=== PATIENT | male | born 1940 | race Caucasian/White ===

== ENCOUNTER 2016-07-21 08:16 | Outpatient (CLI) | payer MEDICARE | END 2016-07-21 08:17 | disposition home or self-care (01) | DX: E78.2 Mixed hyperlipidemia (principal); Z79.899 Other long term (current) drug therapy ==

== ENCOUNTER 2016-09-19 08:00 | Outpatient (CLI) | payer MEDICARE | END 2016-09-19 23:59 | DX: E78.2 Mixed hyperlipidemia (principal); I10 Essential (primary) hypertension; Z79.899 Other long term (current) drug therapy ==

== ENCOUNTER 2017-06-01 08:00 | Outpatient (CLI) | payer MEDICARE ==
[2017-06-01 14:18] LABS: BASOPHILS % (AUTO) 0.7 %; EOSINOPHILS # (AUTO) 0.4 10^3/uL (0.0-0.7); EOSINOPHILS % (AUTO) 6.2 %; HCT - HEMATOCRIT 41.9 % (42.0-52.0); HGB - HEMOGLOBIN 14.5 g/dL (14.0-18.0); LYMPHOCYTES # (AUTO) 1.5 10^3/uL (1.5-3.5); LYMPHOCYTES % (AUTO) 26.4 %; MEAN CORPUSCULAR HGB CONC 34.6 g/dL (32.0-36.0); MEAN CORPUSCULAR VOLUME 95.5 fL (80.0-94.0); MEAN PLATELET VOLUME 7.5 fL (7.4-11.4); MONOCYTES # (AUTO) 0.7 10^3/uL (0.0-1.0); MONOCYTES % (AUTO) 11.6 %; NEUTROPHILS # (AUTO) 3.1 10^3/uL (1.5-6.6); NEUTROPHILS % (AUTO) 55.1 %; RED BLOOD COUNT 4.39 10^6/uL (4.70-6.10); RED CELL DISTRIBUTION WIDTH 12.9 % (12.0-15.0); UNCORRECTED WHITE BLOOD COUNT 5.7 x10^3/uL; WHITE BLOOD COUNT 5.7 x10^3/uL (4.8-10.8)
[2017-06-01 14:34] LABS: ALBUMIN/GLOBULIN RATIO 1.4 (1.0-2.2); BILIRUBIN,TOTAL 0.9 mg/dL (0.2-1.0); BUN - BLOOD UREA NITROGEN 23 mg/dL (6-20); CARBON DIOXIDE - CO2 25 mmol/L (21-32); CHLORIDE 105 mmol/L (101-111); CHOL/HDL RATIO 4.4 (<5.0); CHOLESTEROL 168 mg/dL; CREATININE 0.9 mg/dL (0.6-1.2); GFR - MDRD 82 (>89); GLUCOSE 105 mg/dL (70-100); HDL CHOLESTEROL 38 mg/dL; LDL/HDL RATIO 2.8 (<3.6); SODIUM 138 mmol/L (135-145); TRIGLYCERIDES 114 mg/dL; VLDL CHOLESTEROL 23 mg/dL
[2017-06-02 13:36] LABS: HEMOGLOBIN A1C 0.55 g/dL
== END 2017-06-01 08:01 ==
LOC: LAB.R 08:00
PROVIDERS: ATTEND Internal Medicine
DX: I65.29 Occlusion and stenosis of unspecified carotid artery (principal); Z79.899 Other long term (current) drug therapy; R73.9 Hyperglycemia, unspecified; I10 Essential (primary) hypertension; E78.5 Hyperlipidemia, unspecified
CPT/HCPCS: 80053; 80061; 83036; 84443; 85025

== ENCOUNTER 2017-07-08 13:20 | Day surgery (SDC) | payer MEDICARE, OTHER ==
[2017-07-08] MEDS ORDERED: LACTATED RINGERS 1,000 ML IV ONE (13:30)
[2017-07-08] MEDS ORDERED: fentaNYL 100 MCG/2 ML VIAL IVP ONE (15:22)
[2017-07-08] MEDS ORDERED: MIDAZOLAM 2 MG/2 ML VIAL IVP ONE (15:22)
[2017-07-08 16:24] VITALS: BP 123/61
== END 2017-07-08 13:21 | disposition home or self-care (01) ==
LOC: SDS 13:20
PROVIDERS: ATTEND Internal Medicine
PROC: 0DBN8ZX Excision of Sigmoid Colon, Via Natural or Artificial Opening Endoscopic, Diagnostic (ICD-10-PCS; principal; 2017-07-08 14:30)
DX: Z12.11 Encounter for screening for malignant neoplasm of colon (principal); D12.5 Benign neoplasm of sigmoid colon; K57.30 Diverticulosis of large intestine without perforation or abscess without bleeding
CPT/HCPCS: 45380; 88305; J7120

== ENCOUNTER 2018-07-08 08:00 | Outpatient (CLI) | payer MEDICARE, OTHER ==
[2018-07-08 14:36] LABS: BASOPHILS % (AUTO) 0.7 %; EOSINOPHILS # (AUTO) 0.3 10^3/uL (0.0-0.7); EOSINOPHILS % (AUTO) 5.1 %; HGB - HEMOGLOBIN 14.4 g/dL (14.0-18.0); LYMPHOCYTES # (AUTO) 1.4 10^3/uL (1.5-3.5); LYMPHOCYTES % (AUTO) 26.2 %; MEAN CORPUSCULAR HEMOGLOBIN 32.8 pg (27.0-31.0); MEAN CORPUSCULAR HGB CONC 34.4 g/dL (32.0-36.0); MEAN CORPUSCULAR VOLUME 95.3 fL (80.0-94.0); MEAN PLATELET VOLUME 7.5 fL (7.4-11.4); MONOCYTES # (AUTO) 0.6 10^3/uL (0.0-1.0); MONOCYTES % (AUTO) 10.6 %; NEUTROPHILS # (AUTO) 3.1 10^3/uL (1.5-6.6); NEUTROPHILS % (AUTO) 57.4 %; PLT - PLATELET COUNT 266 10^3/uL (130-450); RED BLOOD COUNT 4.41 10^6/uL (4.70-6.10); RED CELL DISTRIBUTION WIDTH 13.3 % (12.0-15.0); WHITE BLOOD COUNT 5.4 x10^3/uL (4.8-10.8)
[2018-07-08 14:52] LABS: HB2 TOTAL 15.6 g/dL; HEMOGLOBIN A1C 0.5 g/dL; HEMOGLOBIN A1C % 5.1 % (4.6-6.2)
[2018-07-08 14:53] LABS: ALBUMIN 4.3 g/dL (3.2-5.5); ALBUMIN/GLOBULIN RATIO 1.5 (1.0-2.2); ALKALINE PHOSPHATASE 64 IU/L (42-121); ALT ALANINE AMINOTRANSFERASE 27 IU/L (10-60); AST ASPARTATE AMINOTRANSFERASE 28 IU/L (10-42); BILIRUBIN,TOTAL 1.1 mg/dL (0.2-1.0); BUN - BLOOD UREA NITROGEN 22 mg/dL (6-20); CARBON DIOXIDE - CO2 24 mmol/L (21-32); CHLORIDE 106 mmol/L (101-111); CHOL/HDL RATIO 4.8 (<5.0); CHOLESTEROL 164 mg/dL; CREATININE 0.9 mg/dL (0.6-1.2); GFR - MDRD 82 (>89); GLUCOSE 99 mg/dL (70-100); HDL CHOLESTEROL 34 mg/dL; LDL CHOLESTEROL,CALCULATED 103 mg/dL; SODIUM 136 mmol/L (135-145); TOTAL PROTEIN 7.1 g/dL (6.7-8.2); VLDL CHOLESTEROL 27 mg/dL
== END 2018-07-08 23:59 | disposition home or self-care (01) ==
LOC: LAB.R 08:00
PROVIDERS: ATTEND Internal Medicine
DX: R73.9 Hyperglycemia, unspecified (principal); I65.29 Occlusion and stenosis of unspecified carotid artery; I10 Essential (primary) hypertension; Z12.5 Encounter for screening for malignant neoplasm of prostate; E78.5 Hyperlipidemia, unspecified; Z79.899 Other long term (current) drug therapy
CPT/HCPCS: 80053; 80061; 83036; 84443; 85025; G0103; 83721; 84153

== ENCOUNTER 2018-08-03 08:00 | Outpatient (CLI) | payer MEDICARE ==
[2018-08-03 16:05] LABS: PSA FREE 0.386 ng/mL (0.16-2.81)
[2018-08-03 16:06] LABS: PSA TOTAL 1.661 ng/mL (0.000-2.000)
== END 2018-08-03 23:59 | disposition home or self-care (01) ==
LOC: LAB.R 08:00
PROVIDERS: ATTEND Internal Medicine
DX: R97.20 Elevated prostate specific antigen [PSA] (principal)
CPT/HCPCS: 81599; 84153; 84154

== ENCOUNTER 2018-08-10 14:50 | Outpatient (CLI) | payer MEDICARE ==
[2018-08-10 16:33] LABS: BASOPHILS # (AUTO) 0.1 10^3/uL (0.0-0.1); BASOPHILS % (AUTO) 1.2 %; EOSINOPHILS # (AUTO) 0.2 10^3/uL (0.0-0.7); EOSINOPHILS % (AUTO) 1.8 %; HGB - HEMOGLOBIN 12.9 g/dL (14.0-18.0); LYMPHOCYTES # (AUTO) 4.1 10^3/uL (1.5-3.5); LYMPHOCYTES % (AUTO) 46.1 %; MEAN CORPUSCULAR HEMOGLOBIN 32.5 pg (27.0-31.0); MEAN CORPUSCULAR HGB CONC 33.8 g/dL (32.0-36.0); MEAN PLATELET VOLUME 7.9 fL (7.4-11.4); MONOCYTES # (AUTO) 0.9 10^3/uL (0.0-1.0); MONOCYTES % (AUTO) 9.9 %; NEUTROPHILS # (AUTO) 3.7 10^3/uL (1.5-6.6); PLT - PLATELET COUNT 164 10^3/uL (130-450); RED BLOOD COUNT 3.98 10^6/uL (4.70-6.10); RED CELL DISTRIBUTION WIDTH 13.3 % (12.0-15.0); WHITE BLOOD COUNT 8.9 x10^3/uL (4.8-10.8)
[2018-08-10 16:50] LABS: ALBUMIN 3.5 g/dL (3.2-5.5); ALBUMIN/GLOBULIN RATIO 0.9 (1.0-2.2); BILIRUBIN,TOTAL 1.2 mg/dL (0.2-1.0); CALCIUM 8.3 mg/dL (8.5-10.3); CREATININE 1.4 mg/dL (0.6-1.2); CRP - C-REACTIVE PROTEIN 4.4 mg/dL (0-1.0); TOTAL PROTEIN 7.2 g/dL (6.7-8.2)
== END 2018-08-10 23:59 | disposition home or self-care (01) ==
LOC: LAB.R 14:50
PROVIDERS: ATTEND Internal Medicine
DX: R53.83 Other fatigue (principal); E78.5 Hyperlipidemia, unspecified; K75.9 Inflammatory liver disease, unspecified
CPT/HCPCS: 80053; 80074; 84484; 85025; 85651; 86140

== ENCOUNTER 2018-08-14 10:02 | Emergency (ER) | payer MEDICARE ==
[2018-08-14] MEDS ORDERED: ACETAMINOPHEN 325 MG TABLET PO STA (11:11)
[2018-08-14] MEDS ORDERED: ALBUTEROL NEB 2.5 MG/3 ML INH STA (11:11)
[2018-08-14] MEDS ORDERED: BENZONATATE 100 MG CAPSULE PO STA (11:11)
[2018-08-14 11:53] LABS: BASOPHILS # (AUTO) 0.1 10^3/uL (0.0-0.1); BASOPHILS % (AUTO) 0.9 %; EOSINOPHILS % (AUTO) 0.4 %; HGB - HEMOGLOBIN 12.6 g/dL (14.0-18.0); LYMPHOCYTES # (AUTO) 2.7 10^3/uL (1.5-3.5); LYMPHOCYTES % (AUTO) 33.3 %; MEAN CORPUSCULAR HEMOGLOBIN 32.8 pg (27.0-31.0); MEAN CORPUSCULAR HGB CONC 35.2 g/dL (32.0-36.0); MEAN CORPUSCULAR VOLUME 93.2 fL (80.0-94.0); MEAN PLATELET VOLUME 8.4 fL (7.4-11.4); MONOCYTES # (AUTO) 0.5 10^3/uL (0.0-1.0); MONOCYTES % (AUTO) 5.9 %; NEUTROPHILS # (AUTO) 4.8 10^3/uL (1.5-6.6); NEUTROPHILS % (AUTO) 59.5 %; PLT - PLATELET COUNT 114 10^3/uL (130-450); RED BLOOD COUNT 3.83 10^6/uL (4.70-6.10); RED CELL DISTRIBUTION WIDTH 13.5 % (12.0-15.0); WHITE BLOOD COUNT 8.1 x10^3/uL (4.8-10.8)
--- NOTE | 2018-08-14 12:00 | XRAY Report ---
Reason: cough for a week, and weakness Procedure Date: 08/14/2018 Accession Number: [id number] / [id number] Procedure: XR - Chest 2 View X-Ray CPT Code: 00196 FULL RESULT: EXAM: CHEST RADIOGRAPHY, 2 VIEWS EXAM DATE: 08/14/2018 11:25 AM. CLINICAL HISTORY: 77-year-old male with cough and weakness for the past week. COMPARISON: XR CHEST PA AND LAT 01/22/2009 4:37 PM. TECHNIQUE: Upright PA and lateral views. FINDINGS: Lungs/Pleura: No focal opacities evident. No pleural effusion. No pneumothorax. Normal volumes. Mediastinum: Heart and mediastinal contours are unremarkable. No adenopathy or pulmonary vascular congestion. Other: Trachea is midline. Osseous structures are unremarkable. IMPRESSION: Normal chest for age and body size, stable. No pneumonia, CHF or other demonstrated cause for the patient's symptoms. RADIA
[2018-08-14 12:06] LABS: ALBUMIN 3.3 g/dL (3.2-5.5); ALBUMIN/GLOBULIN RATIO 0.8 (1.0-2.2); BILIRUBIN,TOTAL 1.3 mg/dL (0.2-1.0); CALCIUM 8.1 mg/dL (8.5-10.3); CREATININE 1.6 mg/dL (0.6-1.2); MAGNESIUM 2.4 mg/dL (1.7-2.8); TOTAL PROTEIN 7.2 g/dL (6.7-8.2)
--- NOTE | 2018-08-14 13:49 | Ultrasound Report ---
Reason: feeling ill; cough; elevated LFTs Procedure Date: 08/14/2018 Accession Number: [id number] / [id number] Procedure: US - Abdomen Limited CPT Code: FULL RESULT: EXAM: ABDOMEN ULTRASOUND LIMITED, RUQ EXAM DATE: 08/14/2018 01:36 PM. CLINICAL HISTORY: Feeling ill. Cough. Elevated liver functions. COMPARISON: None. TECHNIQUE: Real-time scanning was performed with static images obtained. FINDINGS: Liver: Mildly echogenic hepatic parenchyma. No hepatic lesions. No intrahepatic ductal dilatation. The liver is enlarged, 19.1 cm. Main portal vein flow: Hepatopetal. Gallbladder: Mild contracted with diffuse thickening and mild pericholecystic edema. Patient is nontender per wheel lacer and truer. No intraluminal calculi. Biliary System: CBD measures 5-6 mm. No intrahepatic or extrahepatic ductal dilatation. Other: Right kidney is normal in contour and echotexture and measures 10.7 cm. No hydronephrosis. IMPRESSION: 1. Hepatomegaly with diffusely mildly echogenic hepatic parenchyma, findings typically seen with fatty replacement. No hepatic lesions. 2. Diffuse gallbladder wall thickening and mildly contracted gallbladder. Findings are nonspecific and can be seen with adjacent hepatic disease, low protein as well as acalculus cholecystitis. No intraluminal calculi. Per wheel lacer and truer, no sonographic Kenny sign is elicited. 3. No biliary ductal dilatation. RADIA
[2018-08-14 14:47] VITALS: BP 132/69
--- NOTE | 2018-08-14 15:24 | ED Physician Documentation ---
PD HPI URI - Stated complaint Stated Complaint: LAB RESULT ABNORMAL - Chief complaint Chief Complaint: Resp - History obtained from History obtained from: Patient, Family - History of Present Illness Timing - onset: How many weeks ago (has had cough, fevers, and general weakness for 2-3 weeks. Has been to PMD and had CXR that was clear, blood count elevated WBCs, and chemistry showing some elevation LFTs.) Timing duration: Weeks Timing details: Gradual onset, Still present Associated symptoms: Fever, Productive cough (gone from yellow to dark green the past several days.) Recently seen: Clinic (seen few days ago with elevated LFTs and white count. Has had persistent cough. Was to get outpt Chest xray.) Review of Systems Constitutional: reports: Fever, Chills, Myalgias Nose: reports: Congestion. denies: Rhinorrhea / runny nose Throat: denies: Sore throat Cardiac: denies: Chest pain / pressure Respiratory: reports: Dyspnea, Cough, Wheezing GI: denies: Abdominal Pain, Nausea, Vomiting, Diarrhea PD PAST MEDICAL HISTORY - Past Medical History Past Medical History: Yes Cardiovascular: Hypertension, High cholesterol Respiratory: None Neuro: None Endocrine/Autoimmune: None GI: None : None HEENT: Chronic vision loss, Chronic hearing loss Psych: None Musculoskeletal: Osteoarthritis Derm: Other - Past Surgical History Past Surgical History: Yes General: Colonoscopy Derm: Other - Present Medications Home Medications: Ambulatory Orders Medication Instructions Recorded Confirmed Aspirin [Aspirin EC] 1 DAILY 07/07/17 Losartan Potassium 1 DAILY 07/07/17 Rosuvastatin Calcium [Crestor] 1 07/07/17 Albuterol Sulf [Ventolin Hfa 2 puffs INH Q4HR PRN #1 inhaler 08/14/18 Inhaler] Benzonatate [Tessalon Perle] 100 mg PO TID PRN #15 capsule 08/14/18 Dexamethasone [Decadron] 4 mg PO DAILY #5 tablet 08/14/18 Doxycycline Hyclate 100 mg PO BID #20 capsule 08/14/18 - Allergies Allergies/Adverse Reactions: Allergies Allergy/AdvReac Type Severity Reaction Status Date / Time latex Allergy Rash Verified 08/14/18 10:46 Sulfa (Sulfonamide Allergy Rash Verified 08/14/18 10:13 Antibiotics) - Social History Does the pt smoke?: No Smoking Status: Never smoker Does the pt drink ETOH?: Yes Does the pt have substance abuse?: No - Immunizations Immunizations are current?: Yes - POLST Patient has POLST: No PD ED PE NORMAL - Vitals Vital signs reviewed: Yes (mild tachycardia; normal oxygen sats. ) - General General: Alert and oriented X 3, No acute distress, Well developed/nourished - HEENT HEENT: Atraumatic, Ears normal, Pharynx benign - Neck Neck: Supple, no meningeal sign, No adenopathy, No JVD - Cardiac Cardiac: RRR, No murmur, No rub - Respiratory Respiratory: No respiratory distress, Clear bilaterally (with some hoareness and sharpness with coughing. ) - Abdomen Abdomen: Soft, Non tender - Male Male : Deferred - Rectal Rectal: Deferred - Back Back: No CVA TTP - Derm Derm: Normal color, Warm and dry, Other (some speckled rash on torso, mostly on the front. ) - Extremities Extremities: No tenderness to palpate, Normal ROM s pain, No edema, No calf tenderness / cord - Neuro Neuro: Alert and oriented X 3, No motor deficit, Normal speech Results - Vitals Vitals: Vital Signs - 24 hr 08/14/18 08/14/18 08/14/18 10:09 11:37 12:23 Temperature 36.5 C 37.3 C Heart Rate 112 H 100 103 H Respiratory 16 16 18 Rate Blood Pressure 148/56 H 130/60 O2 Saturation 99 97 08/14/18 14:46 Temperature Heart Rate 91 Respiratory 18 Rate Blood Pressure 132/69 H O2 Saturation 98 Oxygen O2 Source Room air - Labs Labs: Laboratory Tests 08/14/18 08/14/18 08/14/18 11:34 11:46 11:46 WBC 8.1 RBC 3.83 L Hgb 12.6 L Hct 35.7 L MCV 93.2 MCH 32.8 H MCHC 35.2 RDW 13.5 Plt Count 114 L MPV 8.4 Neut # (Auto) 4.8 Lymph # (Auto) 2.7 Converse # (Auto) 0.5 Eos # (Auto) 0.0 Baso # (Auto) 0.1 Absolute Nucleated RBC 0.00 Nucleated RBC % 0.0 Sodium 131 L Potassium 4.0 Chloride 100 L Carbon Dioxide 21 Anion Gap 10.0 BUN 30 H Creatinine 1.6 H Estimated GFR (MDRD) 42 L Glucose 121 H Calcium 8.1 L Magnesium 2.4 Total Bilirubin 1.3 H AST 174 H ALT 142 H Alkaline Phosphatase 191 H Total Protein 7.2 Albumin 3.3 Globulin 3.9 Albumin/Globulin Ratio 0.8 L Lipase 70 H Influenza A (Rapid) Negative Influenza B (Rapid) Negative - Rads (name of study) chest xray Radiology: Prelim report reviewed (no acute process.), See rad report PD MEDICAL DECISION MAKING - ED course Complexity details: considered differential (consider viral illness, pneumonia, exac asthma....), d/w patient Departure - Departure Disposition: Home, Self Care Clinical Impression: Flu-like symptoms, Elevated liver enzymes Acute bronchitis Qualifiers: Bronchitis organism: unspecified organism Qualified Code(s): J20.9 - Acute bronchitis, unspecified Condition: Stable Record reviewed to determine appropriate education?: Yes Instructions: ED Upper Resp Infec Abx Tx Follow-Up: Alexis Sarmiento MD [Primary Care Provider] - Prescriptions: Albuterol Sulf [Ventolin Hfa Inhaler] 2 puffs INH Q4HR PRN #1 inhaler PRN Reason: Shortness Of Air/Wheezing Benzonatate [Tessalon Perle] 100 mg PO TID PRN #15 capsule PRN Reason: Cough Dexamethasone [Decadron] 4 mg PO DAILY #5 tablet Doxycycline Hyclate 100 mg PO BID #20 capsule Comments: Drink lots of fluids. Continue usual medications presumably at this time. It seems a flulike illness though your flu test is normal. Your chest x-ray is also clear without any pneumonia. Your liver enzymes are similarly elevated to earlier in the week. The ultrasound showed some inflammation and swelling of the liver and gallbladder consistent with the illness. There are no obvious gallstones. At this point would consider potential bacterial infection with the bronchial symptoms. Using albuterol inhaler 2 puffs 4 times a day for the next 7-10 days. Decadron steroid for inflammation of the bronchials to reduce cough and improve breathing. Doxycycline antibiotic for possible bacterial infection. This has minimal liver metabolism. Use Tessalon if needed for cough. Follow-up with Dr. Zamora later this week. Discharge Date/Time: 08/14/18 15:34
== END 2018-08-14 15:34 | disposition home or self-care (01) ==
LOC: ED 10:02
DX: J11.1 Influenza due to unidentified influenza virus with other respiratory manifestations (principal); R74.8 Abnormal levels of other serum enzymes; J20.9 Acute bronchitis, unspecified; I10 Essential (primary) hypertension; E78.00 Pure hypercholesterolemia, unspecified; Z79.82 Long term (current) use of aspirin
CPT/HCPCS: 36415; 71046; 76705; 80053; 83690; 83735; 85025; 87275; 87276; 94640; 99283; A9270

== ENCOUNTER 2018-08-20 08:55 | Outpatient (CLI) | payer MEDICARE ==
[2018-08-20 13:26] LABS: BASOPHILS % (AUTO) 0.4 %; EOSINOPHILS # (AUTO) 0.1 10^3/uL (0.0-0.7); EOSINOPHILS % (AUTO) 0.6 %; HGB - HEMOGLOBIN 13.4 g/dL (14.0-18.0); LYMPHOCYTES # (AUTO) 3.1 10^3/uL (1.5-3.5); LYMPHOCYTES % (AUTO) 32.4 %; MEAN CORPUSCULAR HEMOGLOBIN 32.8 pg (27.0-31.0); MEAN CORPUSCULAR HGB CONC 34.5 g/dL (32.0-36.0); MEAN PLATELET VOLUME 7.8 fL (7.4-11.4); MONOCYTES # (AUTO) 0.9 10^3/uL (0.0-1.0); MONOCYTES % (AUTO) 9.8 %; NEUTROPHILS # (AUTO) 5.5 10^3/uL (1.5-6.6); NEUTROPHILS % (AUTO) 56.8 %; PLT - PLATELET COUNT 299 10^3/uL (130-450); RED BLOOD COUNT 4.07 10^6/uL (4.70-6.10); RED CELL DISTRIBUTION WIDTH 14.1 % (12.0-15.0); WHITE BLOOD COUNT 9.6 x10^3/uL (4.8-10.8)
[2018-08-20 13:38] LABS: ALBUMIN 3.1 g/dL (3.2-5.5); ALBUMIN/GLOBULIN RATIO 0.7 (1.0-2.2); BILIRUBIN,TOTAL 1.4 mg/dL (0.2-1.0); CALCIUM 8.8 mg/dL (8.5-10.3); CREATININE 1.2 mg/dL (0.6-1.2); TOTAL PROTEIN 7.6 g/dL (6.7-8.2)
== END 2018-08-20 23:59 | disposition home or self-care (01) ==
LOC: LAB.R 08:55
PROVIDERS: ATTEND Internal Medicine
DX: K75.9 Inflammatory liver disease, unspecified (principal)
CPT/HCPCS: 80053; 85025

== ENCOUNTER 2018-08-30 08:20 | Outpatient (CLI) | payer MEDICARE ==
[2018-08-30 12:46] LABS: ALBUMIN 2.7 g/dL (3.2-5.5); ALBUMIN/GLOBULIN RATIO 0.6 (1.0-2.2); BILIRUBIN,TOTAL 1.3 mg/dL (0.2-1.0); CALCIUM 8.2 mg/dL (8.5-10.3); CREATININE 1.2 mg/dL (0.6-1.2)
== END 2018-08-30 23:59 | disposition home or self-care (01) ==
LOC: LAB.R 08:20
PROVIDERS: ATTEND Internal Medicine
DX: K75.9 Inflammatory liver disease, unspecified (principal)
CPT/HCPCS: 80053

== ENCOUNTER 2018-12-21 09:06 | Day surgery (SDC) | payer MEDICARE ==
--- NOTE | 2018-12-21 09:30 | ANESTHESIA ---
Pre-Anesthesia VS, & Labs - Diagnosis Lymphocytic leukemia - Procedure Portacath Vital Signs: Temp Pulse Resp BP Pulse Ox 36 C L 63 18 126/89 H 98 12/21/18 09:18 12/21/18 09:18 12/21/18 09:18 12/21/18 09:18 12/21/18 09:18 Height 6 ft Weight (kg) 86 kg Body Mass Index 25.6 - NPO >8 hours Home Medications and Allergies Home Medications: Ambulatory Orders Ascorbic Acid [Vitamin C] 1,000 mg PO DAILY 12/20/18 Vitamin B Complex 1 each PO DAILY 12/20/18 Vitamin E 100 unit PO DAILY 12/20/18 Ascorbic Acid [Vitamin C] 1,000 mg PO DAILY 12/20/18 Vitamin B Complex 1 each PO DAILY 12/20/18 Vitamin E 100 unit PO DAILY 12/20/18 Allergies/Adverse Reactions: Allergies Allergy/AdvReac Type Severity Reaction Status Date / Time latex Allergy Rash Verified 12/13/18 12:45 Sulfa (Sulfonamide Allergy Rash Verified 12/13/18 12:45 Antibiotics) Anes History & Medical History - Anesthetic History Family history of Anesthesia Complications: Denies Family history of Malignant Hyperthermia: Denies - Medical History Cardiovascular: reports: Hypertension, High cholesterol Pulmonary: reports: None Gastrointestinal: reports: Cirrhosis Urinary: reports: Benign prostate hypertrophy Neuro: reports: None Musculoskeletal: reports: Osteoarthritis Endocrine/Autoimmune: reports: None Blood Disorders: reports: None Skin: reports: None Smoking Status: Former smoker (40 years ago) Psychosocial: reports: No issues indicated - Surgical History General: Colonoscopy Dermatologic: Other Exam General: Alert, Oriented x3 Dental: WNL Mouth Opening: Greater than 4 Fingerbreadths Neck Mobility: Normal Mallampati classification: II Thyromental Distance: greater than 6 cm Respiratory: Lungs clear Cardiovascular: Regular rate Neurological: Normal speech Mental/Cognitive Status: Alert/Oriented X3, Alert Cognitive Status: Within normal limits Plan Anesthesia Type: MAC Consent for Procedure(s) Verified and Reviewed: Yes Code Status: Attempt Resuscitation ASA classification: 3-Severe systemic disease Is this case an emergency?: No
[2018-12-21] MEDS ORDERED: LACTATED RINGERS 1,000 ML IV ONE (09:33)
[2018-12-21] MEDS ORDERED: LIDOCAINE MPF 1%-EPI 1:200000 30 ML VIAL ONE (10:47)
[2018-12-21] MEDS ORDERED: BUPIVACAINE 0.5%-EPI 1:200000 PF 30 ML VIAL ONE (10:47)
[2018-12-21] MEDS ORDERED: SODIUM CHLORIDE 0.9% 50 ML ONE (10:52)
[2018-12-21] MEDS ORDERED: LIDOCAINE-MPF 1% 30 ML VIAL ONE (11:01)
[2018-12-21] MEDS ORDERED: PROPOFOL 200 MG/20 ML VIAL IVP ONE (11:44)
[2018-12-21] MEDS ORDERED: LIDOCAINE-MPF 2% 5 ML VIAL IM ONE (11:44)
[2018-12-21] MEDS ORDERED: fentaNYL 100 MCG/2 ML VIAL IVP ONE (11:44)
[2018-12-21] MEDS ORDERED: MIDAZOLAM 2 MG/2 ML VIAL IVP ONE (11:44)
--- NOTE | 2018-12-21 12:06 | OPERATIVE REPORT ---
Operative Report - General Procedure Date: 12/21/18 Planned Procedure: Right Subclavian Power Port Placement Pre-Op Diagnosis: Leukemia Procedure Performed: Right Subclavian Power Port Placement Post Op Diagnosis: Same - Procedure Note Primary Surgeon: Sharon Anesthesia Technique: Local, MAC Estimated Blood Loss (mL): 20 Findings: Power port in good position in the superior vena cava Complications: None apparent - Other Other Information/Narrative: After obtaining informed consent, the patient is brought to the operating room and placed in the supine position on the operating table.Following successful induction of monitored anesthesia sedation, the right chest and axilla are prepped and draped in the standard surgical fashion. A timeout was held per SCOAP protocol. Following infiltration with local anesthetic to create a field block, the right subclavian vein was entered and a guidewire placed in to the superior vena cava.Fluoroscopy was used to verify the position of the wire in the superior vena cava.A pocket was then created approximately 2-1/2 cm inferior to the access point on the right chest wall.This was done by creating an incision and using cautery to release the subcutaneous tissue from the overlying skin.The tubing for the port was then tunneled between the access point in the pocket using the supplied tunneling device.The tubing was trimmed to an appropriate length and attached to the PowerPort.The port was flushed with heparin saline solution.It was then sewn into the pocket using interrupted Prolene sutures.The dilator and introducer were then passed over the wire and into the subclavian vein. Care was taken to be sure the wire was mobile during the entire process and the monitor was watched for ectopy.The wire was then removed and the dilator was removed leaving only the introducer. The tubing was then placed into the subclavian vein via the introducer.The supplied introducer was then split and removed from the vein.The port flushed and brittany without difficulty.The pocket was then closed with Vicryl Monocryl sutures and Monocryl close to the access site.The wound was dressed with Dermabond.Because this patient has an appointment in chemotherapy later this afternoon, it was accessed and covered with an OpSite dressing. A chest x-ray confirmed excellent position of the port. All sponge, needle, and estimate counts were correct at the conclusion of the case. The patient was allowed to awaken from anesthesia without difficulty and taken to the postanesthesia care unit in good condition.
[2018-12-21 12:54] VITALS: BP 124/61
--- NOTE | 2018-12-21 13:08 | XRAY Report ---
Reason: PORT PLACEMENT Procedure Date: 12/21/2018 Accession Number: [id number] / [id number] Procedure: FL - OR Port-A-Cath CPT Code: FULL RESULT: EXAM: FLUOROSCOPIC GUIDANCE EXAM DATE: 12/21/2018 11:14 AM. CLINICAL HISTORY: Port placement. COMPARISON: None. FINDINGS: A wire is seen traversing the ribcage at the level of the clavicle and then coursing caudally medially on a single fluoroscopic intraoperative capture. IMPRESSION: Fluoroscopic guidance provided for Port-A-Cath placement. Total fluoroscopy time: 0.01 minutes. Number of images: 1. RADIA
[2018-12-21] MEDS ORDERED: SODIUM CHLORIDE 0.9% 10 ML ONE (13:20)
--- NOTE | 2018-12-21 14:40 | XRAY Report ---
Reason: POST PORT PLACEMENT Procedure Date: 12/21/2018 Accession Number: [id number] / [id number] Procedure: XR - Chest for Line Placement CPT Code: FULL RESULT: EXAM: CHEST RADIOGRAPHY EXAM DATE: 12/21/2018 01:09 PM. CLINICAL HISTORY: Post port placement. COMPARISON: CHEST 2 VIEW 08/14/2018 11:17 AM. TECHNIQUE: 1 view. FINDINGS: Lungs/Pleura: No focal opacities evident. No pleural effusion. No pneumothorax. Mediastinum: Within exam limitations, the cardiomediastinal contour is normal. Other: Interval placement of a right subclavian approach chest port with the distal tip in the SVC. Relatively acute angles of the catheter are seen at the level of the clavicle, correlate to functional status. IMPRESSION: Right subclavian approach port placement as described. RADIA
== END 2018-12-21 09:07 | disposition home or self-care (01) ==
LOC: SDS 09:06
PROVIDERS: ATTEND Surgery
PROC: 02HV33Z Insertion of Infusion Device into Superior Vena Cava, Percutaneous Approach (ICD-10-PCS; 2018-12-21)
PROC: 0JH63WZ Insertion of Totally Implantable Vascular Access Device into Chest Subcutaneous Tissue and Fascia, Percutaneous Approach (ICD-10-PCS; principal; 2018-12-21 10:25)
DX: C91.10 Chronic lymphocytic leukemia of B-cell type not having achieved remission (principal); I10 Essential (primary) hypertension; Z87.891 Personal history of nicotine dependence
CPT/HCPCS: 36561; C1788; J7120; 71045

== ENCOUNTER 2020-11-28 07:01 | Outpatient (CLI) | payer MEDICARE ==
--- NOTE | 2020-11-28 09:02 | Ultrasound Report ---
PROCEDURE: Abdomen Limited INDICATIONS: CIRRHOSIS OF LIVER WO ASCITES TECHNIQUE: Real-time focused scanning was performed of the abdomen, with image documentation. COMPARISON: Ultrasound dated 08/14/2018. FINDINGS: Liver measures 16.0 cm in length. Echotexture is grossly normal. No focal hepatic lesion i dentified. Gallbladder is unremarkable. No gallbladder wall thickening. No sonographic Kenny sign. B ile ducts and pancreas are normal. Right kidney is normal measuring 11.2 cm in length. IMPRESSION: Normal examination as above. Normal appearance of the gallbladder. Reviewed by: Humberto De La Cruz MD on 11/28/2020 9:00 AM PDT Approved by: Humberto De La Cruz MD on 11/28/2020 9:00 AM PDT Station ID: [id number]
== END 2020-11-28 07:02 | disposition home or self-care (01) ==
LOC: DI 07:01
PROVIDERS: ATTEND Internal Medicine Gastroenterology
DX: K74.60 Unspecified cirrhosis of liver (principal)

== ENCOUNTER 2021-05-25 07:57 | Outpatient (CLI) | payer MEDICARE ==
--- NOTE | 2021-05-25 11:24 | Ultrasound Report ---
PROCEDURE: Abdomen Limited INDICATIONS: CIRRHOSIS OF LIVER TECHNIQUE: Real-time focused scanning was performed of the abdomen, with image documentation. COMPARISON: 11/28/2020, 10/12/2018 FINDINGS: The liver demonstrates normal size. The liver demonstrates moderately increased echogeni city, which limits ultrasound sensitivity for detection of masses. No gallstones or sludge can be seen. The gallbladder wall does not appear thickened. There is no spec ific pericholecystic fluid. The sonographic Kenny's sign is negative. No biliary ductal dilatation is seen. The common bile duct measures 3 mm. The visualized pancreas is within normal limits. The visualized right kidney is unremarkable. IMPRESSION: Increased liver echogenicity is seen. This is nonspecific, yet it is most commonly attributed to fatt y infiltration. Differential diagnosis includes cirrhosis and fibrosis in this patient with this give n history, however. Reviewed by: Igor Mcintosh MD on 05/25/2021 10:22 AM [facility] Approved by: Igor Mcintosh MD on 05/25/2021 10:22 AM [facility] Station ID: [id number]
== END 2021-05-25 07:58 | disposition home or self-care (01) ==
LOC: DI 07:57
PROVIDERS: ATTEND Internal Medicine Gastroenterology
DX: K70.30 Alcoholic cirrhosis of liver without ascites (principal); R93.2 Abnormal findings on diagnostic imaging of liver and biliary tract

== ENCOUNTER 2023-10-27 19:37 | Outpatient (CLI) | payer MEDICARE | END 2023-10-27 23:59 | disposition E | LOC: EMS 19:37 ==